=== PATIENT | male | born 1950 | race Caucasian/White ===

== ENCOUNTER 2016-05-06 10:43 | Inpatient (IN) | payer OTHER, MEDICARE ==
[2016-04-14 10:37] VITALS: BMI 24.0
--- NOTE | 2016-04-14 11:13 | PAT Medication Instructions ---
Service Date Apr 14, 2016. Current Home Medication List B-Complex W/ Folic Acid (Super B Complex Maxi), 1 TAB PO QAM Diazepam (Valium), 10 MG PO HS PRN for Pain Esomeprazole Magnesium (Nexium), 40 MG PO EVERY THREE DAYS Fish Oil ([place]-3), 1,000 MG PO QAM Garlic (Garlic), 1 CAP PO BID Magnesium Oxide (Magnesium), 100 MG PO QPM Misc Natural Products (Saw [place]), 320 MG PO QPM Multiple Vitamin (Multi Vitamin), 1 TAB PO QAM Simvastatin (Zocor), 40 MG PO QAM Medication Instructions For Your Scheduled Surgery - Hold the following medications 2 weeks prior to surgery: Misc Natural Products (Saw [place]), 320 MG PO QPM Fish Oil ([place]-3), 1,000 MG PO QAM Garlic (Garlic), 1 CAP PO BID - Hold the following medications the morning of surgery: B-Complex W/ Folic Acid (Super B Complex Maxi), 1 TAB PO QAM Multiple Vitamin (Multi Vitamin), 1 TAB PO QAM - Take the following medications the morning of surgery with a sip of water OTHERWISE NOTHING TO EAT OR DRINK AFTER MIDNIGHT: Esomeprazole Magnesium (Nexium), 40 MG PO EVERY THREE DAYS Simvastatin (Zocor), 40 MG PO QAM - Take the following medications as scheduled the night before surgery: Magnesium Oxide (Magnesium), 100 MG PO QPM Diazepam (Valium), 10 MG PO HS PRN for Pain If you have any questions please call us at [phone] (Karen Mendoza PA-C ) or [phone] or [phone]
--- NOTE | 2016-04-14 11:40 | DIAGNOSTIC IMAGING REPORT ---
CHEST PREADMISSION(PA/LAT) CLINICAL HISTORY: Preoperative chest COMPARISON STUDY: No previous studies for comparison. FINDINGS: The heart is at the upper limits of normal in size. There is no failure. There is no focal pulmonary consolidation. There are no pleural effusions.[ IMPRESSION: No active disease in the chest. Electronically signed by: Abdullahi Chahal M.D. 04/14/2016 11:38 AM Dictated Date/Time: 04/14/2016 11:37 AM
[2016-04-14 11:58] LABS: BASO % 0.8 %; BASO ABS # 0.06 K/uL (0-0.2); COMPLETE YES; EOS % 6.2 %; HEMATOCRIT 42.7 % (42-52); IG% 0.5 %; LYMPH % 23.1 %; LYMPH ABS # 1.76 K/uL (1.2-3.4); MEAN CELL VOLUME 85.9 fL (80-100); MEAN CORPUSCULAR HEMOGLOBIN 29.6 pg (25-34); MEAN CORPUSCULAR HGB CONC 34.4 g/dl (32-36); MEAN PLATELET VOLUME 10.1 fL (7.4-10.4); MONO % 9.8 %; NEUT % 59.6 %; PLATELET COUNT 219 K/uL (130-400); RED BLOOD COUNT 4.97 M/uL (4.7-6.1); WHITE BLOOD COUNT 7.63 K/uL (4.8-10.8)
[2016-04-14 12:10] LABS: PARTIAL THROMBOPLASTIN RATIO 1.2; PROTHROMBIN TIME (PATIENT) 10.9 SECONDS (9.0-12.0)
[2016-04-14 12:27] LABS: BUN/CREATININE RATIO 16.2 (10-20); CALCIUM 8.7 mg/dl (8.5-10.1); CREATININE 0.8 mg/dl (0.60-1.40); POTASSIUM 4.4 mmol/L (3.5-5.1)
[2016-04-14 12:40] LABS: URINE APPEARANCE CLEAR (CLEAR); URINE BILIRUBIN NEG (NEG); URINE COLOR DK YELLOW; URINE NITRITE NEG (NEG); URINE SPECIFIC GRAVITY 1.012 (1.000-1.030); UROBILINOGEN NEG (NEG); ZZUR CULT IF INDIC CLEAN CATCH NO
[2016-04-14 12:53] LABS: MANUAL MICROSCOPIC REQUIRED? NO; REVIEW REQ? NO
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
[2016-05-06] VITALS (7 sets, daily range): BP systolic 111–157; BP diastolic 70–83; PULSE 65–94; TEMP 36.4–36.6; O2SAT 91–96; Ht 175.3 cm; Wt 71.7 kg
[~2016-05-06] VITALS: Ht 175.3 cm; Wt 71.7 kg
[2016-05-06] MEDS: TRANEXAMIC ACID INJ 1,000 MG in SODIUM CHLORIDE 0.9% 100ML 100 ML IV SCH ×2 (06:30→13:44)
[~2016-05-06 10:43] MED LIST: ACETAMINOPHEN 500 MG TAB PO SCH; ADVAIR INH; B-CO-25 PO; BUPIVACAINE 0.5 % 5 MG/1 ML PF 10ML VIAL ONE; BUPIVACAINE/EPINEPHRINE 0.25% 1:200,000 30 ML VIAL ONE; CEFAZOLIN 2000 MG/60 ML D5W 60 ML IV SCH; CeleBREX 200 MG CAP PO SCH; DEXAMETHASONE 4 MG TAB PO SCH; DIAZ10TA PO; FAMOTIDINE 20 MG TAB PO SCH; GABAPENTIN 300 MG CAP PO SCH; GARL10007 PO; LACTATED RINGER'S 1000ML 1,000 ML IV SCH; LACTATED RINGER'S 1000ML 500 ML IV ONE; LACTATED RINGER'S 1000ML IV SCH; LIDOCAINE HCL 2% 2 ML VIAL (20MG/ML) ONE; MAGN1TAB41 PO; METOCLOPRAMIDE HCL 10 MG TAB PO SCH; MISC1CAP60 PO; MULT-1027 PO; NXM/40 PO; OMEG10007 PO; OXYCODONE HCL 10 MG TABCR (OXYCONTIN) PO SCH; POLYMYXIN B SULFATE 100,000 UNITS in NSS 100ML IR SCH; ROPIVACAINE 5MG/ML 30 ML 150 MG, BUPIVACAINE/EPINEPHR 0.5% MPF 30 ML, KETOROLAC TROMETH... INFIL SCH; SIMV40TA2 PO; VANCOMYCIN INJ 400 MG in NSS 100ML IR SCH
[2016-05-06] MEDS ORDERED: NALOXONE HCL 0.4 MG/1 ML VIAL/CARP IV PRN (12:30)
[2016-05-06] MEDS ORDERED: LABETALOL HCL IV 5 MG/ML 20ML IV PRN (12:30)
[2016-05-06] MEDS ORDERED: HYDROmorphone INJ 2 MG/ML SYR/VIAL IV PRN (12:30)
[2016-05-06] MEDS ORDERED: PHENYLEPHRINE 100MCG/ML 5ML SYR IV PRN (12:30)
[2016-05-06] MEDS ORDERED: FENTANYL CITRATE INJ 50 MCG/1 ML 2 ML VIAL IV PRN (12:30)
[2016-05-06] MEDS ORDERED: FLUMAZENIL 0.1 MG/1 ML 10 ML VIAL IV PRN (12:30)
[2016-05-06] MEDS ORDERED: ONDANSETRON INJ 2 MG/ML 2 ML VIAL IV PRN ×2 (12:30→16:45)
[2016-05-06] MEDS ORDERED: EpHEDrine SULFATE INJ 50 MG/ML AMP IV PRN (12:30)
[2016-05-06] MEDS ORDERED: ATROPINE SULFATE 0.1 MG/ML 5ML SYR IV PRN (12:30)
[2016-05-06] MEDS ORDERED: MEPERIDINE HCL 25 MG/ML CARP IV PRN (12:30)
[2016-05-06] MEDS ORDERED: MIDAZOLAM HCL 1 MG/ML 2ML VIAL ONE ×2 (13:12→14:30)
[2016-05-06] MEDS ORDERED: PROPOFOL IV EMULSION 10 MG/ML 20 ML VIAL IV ONE ×3 (13:12→15:18)
--- NOTE | 2016-05-06 13:47 | History & Physical Bridge Note ---
H&P Re-Evaluation Bridge Note: I have examined the patient, reviewed the History & Physical and in the interval since the performance of the History & Physical I have noted the following changes of clinical significance: No changes noted
[2016-05-06] MEDS ORDERED: ORTHO JOINT ANESTHETIC ONE (14:04)
[2016-05-06] MEDS ORDERED: BUPIVACAINE/EPINEPHRINE 0.25% 1:200,000 30 ML VIAL ONE (14:04)
[2016-05-06] MEDS ORDERED: POVIDONE-IODINE OP SOLN 30 ML BTL ONE (14:04)
[2016-05-06] MEDS ORDERED: BACITRACIN 50000 UNIT VIAL ONE (14:04)
[2016-05-06] MEDS ORDERED: FENTANYL CITRATE INJ 50 MCG/1 ML 2 ML VIAL ONE (14:26)
[2016-05-06] MEDS ORDERED: ONDANSETRON INJ 2 MG/ML 2 ML VIAL ONE (14:46)
[2016-05-06] MEDS ORDERED: LIDOCAINE HCL 2% 2 ML VIAL (20MG/ML) ONE (14:46)
[2016-05-06] MEDS ORDERED: EpHEDrine SULFATE 50MG/5ML SYR ONE (15:05)
--- NOTE | 2016-05-06 16:36 | [facility] Post Operative Brief Note ---
Immediate Operative Summary Operative Date May 06, 2016. Pre-Operative Diagnosis Degenerative joint disease, right knee Post-Operative Diagnosis Degenerative joint disease, right knee severe post traumatic arthritis Procedure(s) Performed Right Total Knee Arthoplasy Surgeon Dr. Fareed Loen [employer] Consultant Surgeon(s) Nicole Mackenzie PA-C Estimated Blood Loss 25 Findings severe scarring Specimens A: right knee bone and tissue Complication(s) None Disposition Recovery Room / PACU
[2016-05-06] MEDS ORDERED: ALUMINUM/MAGNESIUM/SIMETH (MAALOX MAX) 30 ML UDC PO PRN (16:45)
[2016-05-06] MEDS ORDERED: METOCLOPRAMIDE HCL INJ 5 MG/ML 2 ML VIAL IV PRN (16:45)
[2016-05-06] MEDS ORDERED: SOD PHOSPHATE/SOD BIPHOSPHATE ENEMA 132 ML BTL PR PRN (16:45)
[2016-05-06] MEDS ORDERED: BISACODYL 10 MG SUPP PR PRN (16:45)
[2016-05-06] MEDS ORDERED: OXYCODONE HCL IR 5 MG TAB (IMMEDIATE RELEASE) PO PRN (16:45)
[2016-05-06] MEDS ORDERED: MAGNESIUM HYDROXIDE SUSP 30 ML UDC PO PRN (16:45)
[2016-05-06] MEDS ORDERED: MoRPHine SULFATE 2 MG/ML CARP IV PRN (16:45)
[2016-05-06] MEDS ORDERED: TRAMADOL HCL 50 MG TAB PO PRN (16:45)
[2016-05-06] MEDS ORDERED: DiphenhydrAMINE HCL 50 MG/ML VIAL IV PRN (16:45)
[2016-05-06] MEDS ORDERED: KETOROLAC TROMETHAMINE 15 MG/ML VIAL IV. PRN (16:45)
--- NOTE | 2016-05-06 17:17 | Anesthesiology Progress Note ---
Anesthesia Post Op Note Date & Time May 06, 2016 at 17:17 Vital Signs Pain Intensity: 0 Vital Signs Past 12 Hours Date Time Temp Pulse Resp B/P Pulse Ox O2 Delivery O2 Flow Rate FiO2 05/06/16 16:56 36.1 90 18 122/69 99 Mask 10 05/06/16 11:10 36.6 65 18 132/81 96 Room Air Notes Mental Status: alert / awake / arousable, participated in evaluation Pt Amnestic to Procedure: Yes Nausea / Vomiting: adequately controlled Pain: adequately controlled Airway Patency, RR, SpO2: stable & adequate BP & HR: stable & adequate Hydration State: stable & adequate Neuraxial Anesthesia: was administered, sensory block is resolving Anesthetic Complications: no major complications apparent Pt doing well.
--- NOTE | 2016-05-06 17:33 | DIAGNOSTIC IMAGING REPORT ---
RIGHT KNEE 1 OR 2 VIEWS ROUTINE CLINICAL HISTORY: Postoperative evaluation of the right knee. COMPARISON: None FINDINGS: Alignment of the total right knee arthroplasty is anatomic. There is no fracture or unexpected radiopaque foreign body. Drains and skin noman are present. There is a healed fracture of the proximal shaft of the right fibula. Cortical irregularity of the medial distal right femur is chronic and likely posttraumatic. IMPRESSION: Expected findings following total right knee arthroplasty. Electronically signed by: Nikolay Jeffery M.D. 05/06/2016 5:32 PM Dictated Date/Time: 05/06/2016 5:31 PM
[2016-05-06] MEDS: D5W AND 1/2NSS + 20MEQ KCL 1,000 ML IV SCH (18:50)
[2016-05-06] MEDS: SENNA 8.6 MG TAB PO SCH (18:54)
[2016-05-06] MEDS ORDERED: ADVIN25050 PO (18:55)
[2016-05-06] MEDS: FLUTICASONE/SALMETEROL 250/50 (ADVAIR) 14 PUFF/1 INHALER INH SCH (20:08)
[2016-05-06] MEDS: ASPIRIN 81 MG ECTAB PO SCH (20:43)
[2016-05-06] MEDS: OXYCODONE HCL 10 MG TABCR (OXYCONTIN) PO SCH (20:44)
[2016-05-06] MEDS: CEFAZOLIN IV 2,000 MG in DEXTROSE 5% 50ML 50 ML IV SCH (22:10)
[2016-05-06] MEDS: ACETAMINOPHEN 500 MG TAB PO SCH (22:11)
[2016-05-06] MEDS ORDERED: TRANEXAMIC ACID INJ 1,000 MG in SODIUM CHLORIDE 0.9% 100ML 100 ML IV SCH (23:00)
[2016-05-06] MEDS: ZOLPIDEM TARTRATE 5 MG TAB PO PRN (23:37)
[2016-05-07] VITALS (8 sets, daily range): BP systolic 101–145; BP diastolic 58–79; PULSE 65–74; TEMP 36.4–36.8; O2SAT 92–98
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
[2016-05-07] MEDS: ZOLPIDEM TARTRATE 5 MG TAB PO PRN (01:31)
[2016-05-07] MEDS: D5W AND 1/2NSS + 20MEQ KCL 1,000 ML IV SCH ×2 (04:16→13:48)
[2016-05-07] MEDS: CEFAZOLIN IV 2,000 MG in DEXTROSE 5% 50ML 50 ML IV SCH (06:08)
[2016-05-07] MEDS: ACETAMINOPHEN 500 MG TAB PO SCH ×3 (06:08→20:50)
[2016-05-07 06:40] LABS: HEMATOCRIT 34.2 % (42-52); MEAN CELL VOLUME 86.1 fL (80-100); MEAN CORPUSCULAR HGB CONC 34.8 g/dl (32-36); MEAN PLATELET VOLUME 10.2 fL (7.4-10.4); PLATELET COUNT 207 K/uL (130-400); RED BLOOD COUNT 3.97 M/uL (4.7-6.1); WHITE BLOOD COUNT 18.32 K/uL (4.8-10.8)
[2016-05-07] MEDS: PANTOprazole SOD 40 MG TAB PO SCH (07:10)
[2016-05-07 07:17] LABS: BUN/CREATININE RATIO 18.9 (10-20); CALCIUM 7.9 mg/dl (8.5-10.1); CREATININE 0.88 mg/dl (0.60-1.40); POTASSIUM 4.3 mmol/L (3.5-5.1)
--- NOTE | 2016-05-07 07:27 | Orthopedic Progress Note ---
Orthopedic Progress Note Date of Service May 07, 2016. Subjective Post OP Day: 1 Reports: feeling well, pain controlled w PO medications, Denies: SOB, calf pain , chest pain, complaints, light headedness, nausea / vomiting Objective calves soft nontender, N/V intact, capillary refill less than 2 sec., dressing C /D/I, A&O x3, toes mobile Provena wound vac in tact. Date Time Temp Pulse Resp B/P Pulse Ox O2 Delivery O2 Flow Rate FiO2 05/07/16 07:02 36.5 70 18 111/63 93 Room Air 05/07/16 03:32 36.5 74 16 111/64 92 Room Air 05/06/16 23:30 Room Air 05/06/16 23:02 36.4 83 16 111/70 91 Room Air 05/06/16 20:40 36.4 87 18 138/81 94 Room Air 05/06/16 19:31 36.5 94 18 157/77 92 Room Air 05/06/16 18:40 36.4 94 18 121/81 93 Nasal Cannula 3.0 05/06/16 18:13 36.6 84 16 130/83 95 Nasal Cannula 2.0 05/06/16 17:40 96 Nasal Cannula 2.0 05/06/16 17:40 96 Nasal Cannula 2.0 05/06/16 17:40 36.4 88 16 136/78 96 Nasal Cannula 2.0 05/06/16 17:25 36.4 89 15 134/84 94 Nasal Cannula 2 05/06/16 16:56 36.1 90 18 122/69 99 Mask 10 05/06/16 11:10 36.6 65 18 132/81 96 Room Air Laboratory Results 24 Hours: Test 05/07/16 05:50 Hematocrit 34.2 % Hemoglobin 11.9 g/dL Assessment & Plan Assessment: POD #1, Rt TKA Plan: PT/ OT DVT proph- ASA D/C planning- Home w OPPT, likely Monday. Inhouse Planning Pain Management: Celebrex, Oxycontin, Hayden, Morphine, PO Tylenol, Oxy IR DVT Prophylaxis: TEDs, SCDs, ASA Discharge Planning Discharge Planning: home with oppt Pain Management: Celebrex, Oxycontin, PO Tylenol, Oxy IR DVT Prophylaxis: TEDs, ASA Therapy: Physical Therapy, Occupational Therapy
[2016-05-07] MEDS: OXYCODONE HCL 10 MG TABCR (OXYCONTIN) PO SCH ×2 (09:17→20:50)
[2016-05-07] MEDS: MULTIVITAMIN TAB PO SCH (09:17)
[2016-05-07] MEDS: FLUTICASONE/SALMETEROL 250/50 (ADVAIR) 14 PUFF/1 INHALER INH SCH ×2 (09:17→19:11)
[2016-05-07] MEDS: ASPIRIN 81 MG ECTAB PO SCH ×2 (09:18→20:50)
[2016-05-07] MEDS: SIMVASTATIN 40 MG TAB PO SCH (09:18)
[2016-05-07] MEDS: SENNA 8.6 MG TAB PO SCH (20:50)
[2016-05-08] MEDS: ACETAMINOPHEN 500 MG TAB PO SCH (07:05)
--- NOTE | 2016-05-08 07:13 | Orthopedic Progress Note ---
Orthopedic Progress Note Date of Service May 08, 2016. Subjective Post OP Day: 2 Reports: feeling well, pain controlled w PO medications, Denies: SOB, calf pain , chest pain, complaints, light headedness, nausea / vomiting Objective calves soft nontender, N/V intact, capillary refill less than 2 sec., dressing C /D/I, A&O x3, toes mobile Provena in tact. Date Time Temp Pulse Resp B/P Pulse Ox O2 Delivery O2 Flow Rate FiO2 05/07/16 23:15 Room Air 05/07/16 22:40 36.8 65 16 112/67 96 Room Air 05/07/16 15:45 Room Air 05/07/16 12:05 36.5 74 16 145/79 94 Room Air 05/07/16 10:15 70 96 05/07/16 09:15 98 Room Air 05/07/16 08:06 36.4 72 16 120/76 97 Room Air 05/07/16 08:00 Room Air Assessment & Plan Assessment: POD #2, Rt TKA Plan: PT/ OT DVT proph- ASA D/C planning- Home w OPPT, today. Inhouse Planning Pain Management: Celebrex, Oxycontin, Scobey, Morphine, PO Tylenol, Oxy IR DVT Prophylaxis: TEDs, SCDs, ASA Discharge Planning Discharge Planning: home with oppt Pain Management: Celebrex, Oxycontin, PO Tylenol, Oxy IR DVT Prophylaxis: TEDs, ASA Therapy: Physical Therapy, Occupational Therapy
[2016-05-08] MEDS ORDERED: RXC5 PO (07:16)
[2016-05-08] MEDS ORDERED: CLB200 PO (07:16)
[2016-05-08] MEDS ORDERED: ACET-1138 PO (07:16)
[2016-05-08] MEDS ORDERED: OXYSR10 PO (07:16)
[2016-05-08] MEDS ORDERED: ASPEC81 PO (07:16)
[2016-05-08] MEDS ORDERED: ONDA8TAB6 PO (07:16)
--- NOTE | 2016-05-08 07:18 | Discharge Instructions ---
Discharge Instructions Admission Reason for Admission: Right Knee Degenerative Arthritis Discharge Discharge Diagnosis / Problem: Right TKA Discharge Goals Goal(s): Improve function Activity Recommendations Activity Limitations: as noted below . Instructions / Follow-Up Instructions / Follow-Up ACTIVITY RECOMMENDATIONS: SELF CARE INSTRUCTIONS AFTER TOTAL KNEE REPLACEMENT A. You may need to continue a physical therapy program after discharge from the hospital. There are several options available to you. Your doctor will assist you in selecting the best one for you. 1. An out-patient facility 2 to 3 times a week for therapy or home therapy. 2. Continue working on all exercises taught to you in the hospital. Your goals should be to increase bending of your knee to 90 degrees and beyond and to fully straighten your knee. B. You may progress at your own pace from walking with a walker or crutches to a cane; then to no assistive devices. C. Make walking a part of your daily routine. Be up as much as comfortable with rest periods throughout the day. Rest with leg elevation is very important. Use the ice wrap frequently for the first 3-4 weeks. D. There are no restrictions on activities. You may ride in a car, shop, participate in casing worker and all social activities. E. Wear the long elastic stockings (JASEN hose) 20 hours a day for 2 weeks after surgery. They can be removed several times a day for laundering and for a bath. F. You may shower, no tub baths until cleared by your doctor. SPECIAL CARE INSTRUCTIONS: VERY IMPORTANT TO READ AND REVIEW A. There are a few signs you need to watch for after you are home. Call [facility] if you notice any of the followin. Increased severe knee pain. Some pain is expected especially when you exercise. 2. Increased swelling in your leg or knee; pain or swelling of the calf muscle in either lower leg. 3. Any fluid drainage from the incision. 4. Shortness of breath or chest pain. B. Please call [facility] at if you have any concerns or questions about your operation or recovery. The doctor or his nurse will return your call promptly. C. You must take antibiotics before dental work, bladder, bowel or other surgery. Your doctor will provide you with a permanent care to carry describing this precaution. IMPORTANT: * REMEMBER TO TAKE ASPIRIN, 81 MG, TWICE DAILY FOR 4 WEEKS UNLESS OTHERWISE DIRECTED. THIS IS YOUR BLOOD THINNER. * HIGH RISK PATIENTS MAY BE PRESCRIBED A STRONGER BLOOD THINNER. THIS WILL BE PROVIDED AT DISCHARGE. * CALL IF INCREASED PAIN, REDNESS, DRAINAGE OR FEVER GREATER THAT 101. * WEAR JASEN HOSE 20 HOURS PER DAY FOR 2 WEEKS. * YOU MAY HAVE A LARGE BAND-AID LIKE DRESSING (SILVERON). THIS WILL REMAIN ON YOUR INCISION FOR 7 DAYS, THEN CAN BE REMOVED. IF INCISION IS LEAKING THROUGH DRESSING, CALL THE OFFICE . FOLLOW UP VISIT: If appointment is not already scheduled: Please call [facility] to make a follow-up appointment for 2 weeks after your surgery at . YOU HAVE A SUPERFICIAL WOUND VAC, REMOVE AND DISCARD ALL PARTS 1 WEEK POST OP, THEN REPLACE WITH DAILY DRESSINGS UNTIL FOLLOW UP IN OFFICE. Current Hospital Diet Patient's current hospital diet: Low Lactose Diet Discharge Diet Recommended Diet: Regular Diet Procedures Procedures Performed: Right Total Knee Arthoplasy Pending Studies Studies pending at discharge: no Medical Emergencies . Who to Call and When: Medical Emergencies: If at any time you feel your situation is an emergency, please call [phone] immediately. . Non-Emergent Contact Non-Emergency issues call your: Primary Care Provider . "Provider Documentation" section prepared by Spenser Garcia. VTE Core Measure Inpt VTE Proph given/why not?: Other Anticoagulation (ASA), T.E.D. Stockings, SCD's
[2016-05-08] MEDS: PANTOprazole SOD 40 MG TAB PO SCH (07:48)
[2016-05-08 07:49] VITALS: BP 118/71; PULSE 61; TEMP 36.6; O2SAT 94
[2016-05-08] MEDS: FLUTICASONE/SALMETEROL 250/50 (ADVAIR) 14 PUFF/1 INHALER INH SCH (08:33)
[2016-05-08] MEDS: OXYCODONE HCL 10 MG TABCR (OXYCONTIN) PO SCH (08:33)
[2016-05-08] MEDS: ASPIRIN 81 MG ECTAB PO SCH (08:33)
[2016-05-08] MEDS: MULTIVITAMIN TAB PO SCH (08:33)
[2016-05-08] MEDS: SIMVASTATIN 40 MG TAB PO SCH (08:33)
[2016-05-08 08:41] VITALS: BP 118/71; PULSE 61; TEMP 36.6; O2SAT 94
[2016-05-08] MEDS ORDERED: CeleBREX 200 MG CAP PO SCH (21:00)
== END 2016-05-08 11:03 | disposition home or self-care (01) | DRG 470 ==
LOC: ENRESERVDT → ENRESERVTM → C.ACU 10:43 → C.3E 10:51
PROVIDERS: ADMIT Orthopaedic Surgery; ATTEND Orthopaedic Surgery
PROC: 0SRC0J9 Replacement of Right Knee Joint with Synthetic Substitute, Cemented, Open Approach (ICD-10-PCS; principal; 2016-05-06 13:00)
DX: M17.31 Unilateral post-traumatic osteoarthritis, right knee (principal); J45.909 Unspecified asthma, uncomplicated; K21.9 Gastro-esophageal reflux disease without esophagitis; Z87.891 Personal history of nicotine dependence; Z98.1 Arthrodesis status; Z98.890 Other specified postprocedural states; Z79.899 Other long term (current) drug therapy

== ENCOUNTER 2024-05-06 07:59 | Inpatient (IN) ==
--- NOTE | 2024-03-29 16:05 | PAT Medication Instructions ---
Medication Instructions Date of Service March 29, 2024 Home Medications budesonide-formoterol HFA 160 mcg-4.5 mcg/actuation aerosol inhaler 1 inh inhalation BID furosemide 40 mg tablet 40 mg PO QAM garlic 1,000 mg capsule 1,000 mg PO QAM omega 2-ezu-cbc-fish oil 1,200 mg (144 mg-216 mg) capsule (Fish Oil) 1 cap PO BID omeprazole 40 mg capsule,delayed release 40 mg PO Q2D simvastatin 40 mg tablet 40 mg PO HS spironolactone 25 mg tablet 25 mg PO QAM Continue as directed omeprazole 40 mg capsule,delayed release 40 mg PO Q2D STOP taking 2 weeks before surgery (or as soon as possible if surgery is within 2 weeks) garlic 1,000 mg capsule 1,000 mg PO QAM omega 6-bxv-alc-fish oil 1,200 mg (144 mg-216 mg) capsule (Fish Oil) 1 cap PO BID DO NOT take the morning of surgery furosemide 40 mg tablet 40 mg PO QAM spironolactone 25 mg tablet 25 mg PO QAM Take morning of surgery With a small sip of water, OTHERWISE NOTHING TO EAT OR DRINK AFTER MIDNIGHT: budesonide-formoterol HFA 160 mcg-4.5 mcg/actuation aerosol inhaler 1 inh inhalation BID Take evening before surgery budesonide-formoterol HFA 160 mcg-4.5 mcg/actuation aerosol inhaler 1 inh inhalation BID simvastatin 40 mg tablet 40 mg PO HS Other Notes If you have any questions please call us at [phone] or [phone] or [phone] or [phone]
--- NOTE | 2024-04-09 09:05 | Anesthesiology Consultation ---
Date of Service April 09, 2024 Assessment & Plan (1) Encounter for pre-operative examination: - Infectious disease screening: Per assessment on 04/09/24- No known recent infectious disease contacts or current infectious disease symptoms. - [facility]ascular visit (03/13/24): "follow up in [facility].. Doing extremely well on diflunisal/spironolactone/empagliflozin, atorvastatin.. NYHA I, euvolemic, NAC stage 1.. Last echo August 2023.. 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 He will continue on his GDMT with Aldactone 25 mg daily and Jardiance 10 mg daily.. 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 Ceballos.. We will see him back in 1 year, or earlier if he has any progressive cardiac symptoms.. we will try to see if you can qualify for Tafamidis again.. Will discontinue Diflunisal in that case" > Clarified current medications with patient 04/09/24- Tafamidis was approved so he is no longer taking Diflunisal (further medication adjustments made as well and updated in medication list). - Patient acceptable risk for surgery pending surgeon-ordered PCP (Dr. Hernandez/Alexander, appt 04/12) and cardiology (Dr. Ceballos, writing letter vs preop appt TBD) preop evaluations. Chart Review Chart Review: Patient seen in Pre Admission Testing Teaching & Discussion Pre-Anesthesia Teaching/Discussion Notes: Instructed NPO after midnight before surgery,except medications with 15 cc of water. Medication instructions provided according to the PAT guidelines. History Surgery Operation Date: 05/06/24 10:05 Proposed Procedures p L3-S1 Decompression and Fusion, Spinal Cord Monitoring - Placido Momin, Height/Weight Height: 5 ft 9 in Weight: 75.7 kg Allergies Allergy/AdvReac Type Severity Reaction Status Date / Time No Known Allergies Allergy Unknown Verified 03/28/24 12:13 lactose AdvReac Severe Severe Verified 04/01/24 12:26 gas/abnormal pain Medications Home Medications Medication Instructions Recorded Confirmed Last Taken budesonide-formoterol HFA 160 1 inh inhalation BID 03/28/24 03/28/24 Unknown mcg-4.5 mcg/actuation aerosol inhaler furosemide 40 mg tablet 40 mg PO QAM 03/28/24 03/28/24 Unknown garlic 1,000 mg capsule 1,000 mg PO QAM 03/28/24 03/28/24 Unknown omega 1-ion-vfz-fish oil 1,200 mg 1 cap PO BID 03/28/24 03/28/24 Unknown (144 mg-216 mg) capsule (Fish Oil) omeprazole 40 mg capsule,delayed 40 mg PO Q2D 03/28/24 03/28/24 Unknown release simvastatin 40 mg tablet 40 mg PO HS 03/28/24 03/28/24 Unknown spironolactone 25 mg tablet 25 mg PO QAM 03/28/24 03/28/24 Unknown tafamidis 80 mg PO DAILY 04/09/24 04/09/24 Unknown Past Medical History Medical History Asthma Patient reports chronic cough/following with pulmonary. Denies asthma/COPD dx Hx asthma listed per cardio records, Follows with Dr. 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 Ceballos/Alexander cardio Exercise / Class Metabolic Activity II 4-5 Yardwork/Stairs/Walk up hill (one FS: No CP, no SOB) Past Surgical History Surgical History History of open reduction and internal fixation (ORIF) procedure 1970- Right ankle and elbow (screw remains), left upper arm (no hardware used) > hardware removed ankle 2006- right upper leg w/patella and left ankle History of surgery Pericardiocentesis r/t pericardial effusion (2021) History of total right knee replacement Right TKA (05/06/16): SAB at L3/4 (1 attempt) + regional at [facility] Hx of ankle fusion 2008, left ankle (+ hardware intact) Hx of colonoscopy Hx of nasal septoplasty 2010, w/ turbinate reduction 12/2018 Hx of repair of left rotator cuff 2003, w/lt carpal tunnel release 2005, revision of rotator cuff Hx of repair of right rotator cuff 1982, w/rt carpal tunnel release 02/2011, revision rotator cuff S/P hardware removal right ankle Past Anesthesia History No Hx of Anesthesia Complications and No Family Hx of Anesthesia Complications History of PONV No Hx of PONV and No Hx of Motion Sickness Social History Smoking Status: Former smoker Do You Dip or Chew Tobacco: No Smoking End Date: 1973 Hx Alcohol Use: No Hx Substance Use: No substance use type: does not use Review of Systems Patient denies chest pain, shortness of breath, dyspnea on exertion, fever, chills, cough, wheezing. Physical Exam Vital Signs BP 151/77 P 64 TEMP 97.7 SP02 95%RA RESP 16 Physical Full cervical extension range of motion. Full TMJ range of motion. TMD 3 finger breaths Mallampati Score II Dentition: upper left side missing, + crowns Lungs: clear throughout to auscultation Cardiac: regular rate and rhythm, no murmurs noted Spine: normal Carotid arteries: negative bruit Extremities: no LE edema Lab Results Anesthesia Preop Results Results Anesthesia Widget: WBC 7.25 K/ul (4.8-10.8) 04/09/24 Hgb 15.7 g/dl (14.0-18.0) 04/09/24 Hct 45.9 % (42.0-52.0) 04/09/24 Plt 242 K/uL (130-400) 04/09/24 Na 138 mmol/L (136-145) 04/09/24 K 4.0 mmol/L (3.5-5.1) 04/09/24 Cl 107 mmol/L (98-107) 04/09/24 CO2 25 mmol/L (21-32) 04/09/24 BUN 20 mg/dl (6-23) 04/09/24 Creat 0.96 mg/dl (0.6-1.4) 04/09/24 Glucose Level 90 mg/dl (70-99(Fasting)) 04/09/24 PT 11.0 Seconds (9.0-12.0) 04/09/24 PTT 29 Seconds (21-31) 04/09/24 INR 1.0 (0.9-1.1) 04/09/24 Urine Color Yellow 04/09/24 Urine Appearance Clear (Clear) 04/09/24 Urine pH 6.0 (4.5-7.5) 04/09/24 Urine Specific [place] 1.025 (1.000-1.030) 04/09/24 Urine Protein Negative (Negative) 04/09/24 Urine Glucose (UA) Negative (Negative) 04/09/24 Urine Ketones Negative (Negative) 04/09/24 Urine Blood Negative (Negative) 04/09/24 Urine Nitrite Negative (Negative) 04/09/24 Urine Bilirubin Negative (Negative) 04/09/24 Urine Urobilinogen Negative (Negative) 04/09/24 Urine Leukocyte Esterase Negative (Negative) 04/09/24 Blood Type O Positive 04/09/24 Antibody Screen NEGATIVE 04/09/24 Testing Electrocardiogram Date: 04/09/24 SR with first degree AVB with PACs at 64bpm. LAD. Septal infarct, age undetermined. NS TWA. Per comparison EKG from 03/13/24 in system, Septal infarct dating back to 06/10/2020. Chest X-Ray Date: 04/09/24 FINDINGS: No lines and tubes are seen. Cardiomegaly is noted. The lungs are clear. No evidence of pleural effusion or pneumothorax. IMPRESSION: No acute chest disease. Cardiomegaly is noted. Echocardiogram Date: 09/12/23 LVEF 55-60%. Wall thickness is increased with LVH/RVH. Mild MR/TR. Mild LAE. Grade 1 diastolic dysfunction. Trivial pericardial effusion. "As compared to 09/08/22: There is no significant change. Known TTR cardiac amyloidosis." per report. Stress Test Date: 03/01/23 Type: nuclear No significant EKG abnormalities during regadenoson infusion. The PET perfusion images are normal. LVEF 46% at rest and augments to 51% with stress. There was normal segment wall motion. Findings indicate a low probability of obstructive epicardial disease or microvascular disease and probably reflect the clinical state of bradycardia and use of beta-blockade.
[2024-05-06] MEDS ORDERED: ROCURONIUM BROMIDE 10 MG/ML 5 ML VIAL IV ONE ×2 (08:28→11:10)
[2024-05-06] MEDS ORDERED: PROPOFOL IV EMULSION 10 MG/ML 20 ML VIAL IV ONE (08:28)
[2024-05-06] MEDS ORDERED: MIDAZOLAM HCL 1 MG/ML 2ML VIAL ONE (08:28)
[2024-05-06] MEDS ORDERED: GLYCOPYRROLATE 0.2 MG/ML VIAL ONE (08:28)
[2024-05-06] MEDS ORDERED: HYDROmorphone INJ 2 MG/ML SYR/VIAL ONE (08:28)
[2024-05-06] MEDS ORDERED: LIDOCAINE 2% 2 ML VIAL/AMP(20MG/ML) INFIL ONE (08:28)
[2024-05-06] MEDS ORDERED: ONDANSETRON INJ 2 MG/ML 2 ML VIAL ONE (08:28)
[2024-05-06] MEDS ORDERED: KETAMINE HCL 10MG/ML SYR ONE (08:28)
[2024-05-06] MEDS ORDERED: DEXAMETHASONE SOD INJ 4 MG/ML VIAL ONE (08:28)
[2024-05-06] MEDS ORDERED: SUGAMMADEX SODIUM 200 MG/2 ML VIAL IV ONE (08:35)
[2024-05-06] MEDS: ACETAMINOPHEN 500 MG TAB PO SCH (08:48)
[2024-05-06] MEDS: GABAPENTIN 300 MG CAP PO SCH (08:48)
[2024-05-06] MEDS: CeleBREX 200 MG CAP PO SCH (08:49)
[2024-05-06] MEDS: LR 60ML/HR IV SCH (08:49)
[2024-05-06] MEDS: VANCOMYCIN HCL 1,250 MG in SODIUM CHLORIDE 0.9% 250 ML IV SCH (08:50)
[2024-05-06] MEDS: LR 15ML/HR IV SCH (08:50)
--- NOTE | 2024-05-06 10:01 | History & Physical Bridge Note ---
Date of Service May 06, 2024 History & Physical Bridge Note I have examined the patient, reviewed the History & Physical and in the interval since the performance of the History & Physical I have noted the following changes of clinical significance: no changes noted
--- NOTE | 2024-05-06 10:02 | History & Physical Report ---
Date of Service May 06, 2024 Assessment & Plan (1) Multilevel lumbosacral spondylosis with radiculopathy: Plan: L3-S1 decompression and fusion History of Present Illness Chief Complaint: Back and bilateral leg pain Primary Care Provider: Lew Hernandez This is a 73-year-old male who presents for chronic persistent back and leg pain after failing course of nonoperative care is here for surgical intervention. Allergies Allergy/AdvReac Type Severity Reaction Status Date / Time No Known Allergies Allergy Unknown Verified 05/06/24 08:43 lactose AdvReac Severe Severe Verified 05/06/24 08:43 gas/abnormal pain Home Medications Medication Instructions Recorded Confirmed Type budesonide-formoterol HFA 160 1 inh inhalation BID 03/28/24 05/06/24 History mcg-4.5 mcg/actuation aerosol inhaler furosemide 40 mg tablet 40 mg PO QAM 03/28/24 05/06/24 History garlic 1,000 mg capsule 1,000 mg PO QAM 03/28/24 05/06/24 History omega 0-kke-ctf-fish oil 1,200 mg 1 cap PO BID 03/28/24 05/06/24 History (144 mg-216 mg) capsule (Fish Oil) omeprazole 40 mg capsule,delayed 40 mg PO Q2D 03/28/24 05/06/24 History release simvastatin 40 mg tablet 40 mg PO HS 03/28/24 05/06/24 History spironolactone 25 mg tablet 25 mg PO QAM 03/28/24 05/06/24 History tafamidis 80 mg PO DAILY 04/09/24 05/06/24 History Past Med/Surg History Problem List (Updated 05/06/24 @ 10:02 by Placido Momin DO) Multilevel lumbosacral spondylosis with radiculopathy Encounter for pre-operative examination Medical History Asthma Patient reports chronic cough/following with pulmonary. Denies asthma/COPD dx Hx asthma listed per cardio records, Follows with Dr. 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 Ceballos/Alexander cardio Surgical History History of open reduction and internal fixation (ORIF) procedure 1970- Right ankle and elbow (screw remains), left upper arm (no hardware used) > hardware removed ankle 2006- right upper leg w/patella and left ankle History of surgery Pericardiocentesis r/t pericardial effusion (2021) History of total right knee replacement Right TKA (05/06/16): SAB at L3/4 (1 attempt) + regional at [facility] Hx of ankle fusion 2008, left ankle (+ hardware intact) Hx of colonoscopy Hx of nasal septoplasty 2010, w/ turbinate reduction 12/2018 Hx of repair of left rotator cuff 2003, w/lt carpal tunnel release 2005, revision of rotator cuff Hx of repair of right rotator cuff 1982, w/rt carpal tunnel release 02/2011, revision rotator cuff S/P hardware removal right ankle Social History Smoking Status: Former smoker Tobacco Type: Cigarettes Smoking End Date: Quit 1973; Second Hand Exposure: Yes (hx); Do You Dip or Chew Tobacco: No; Tobacco Cessation Education Requested by Patient: No Hx Alcohol Use: No Hx Substance Use: No Preferred Language: Armenian Communication Ability: Effective Communication Engineer Required: No Beliefs That Will Affect Care: None Current Living Situation: Spouse Other Information That Helps Us Care for You: No Feels Safe at Home: Yes Safety Concerns: Feels Safe At This Time Assistive Devices: Glasses and Hearing Aid - Bilateral Physical Exam Physical Exam: Patient is alert and oriented Heart regular rhythm Lungs clear Results & Data Results & Data Vital Signs (Past 12 Hours) Vital Signs Temp Pulse Resp BP Pulse Ox O2 Del Method 05/06/24 08:40 36.8 C 66 20 139/86 97 Room Air
[2024-05-06] MEDS ORDERED: ATROPINE SULFATE 0.1 MG/ML 10ML SYR IV PRN (10:13)
[2024-05-06] MEDS ORDERED: ePHEDrine sulfate 50 MG/ML AMP IV PRN (10:13)
[2024-05-06] MEDS ORDERED: ePHEDrine sulfate 50 MG/5 ML SYR ONE (11:35)
[2024-05-06] MEDS: BUPIVACAINE/EPINEPHRINE 0.25% 1:200,000 30 ML VIAL ONE (12:07)
[2024-05-06] MEDS: ceFAZolin 330 MG/ML 1 GM VIAL ONE (12:08)
[2024-05-06] MEDS ORDERED: ALBUMIN HUMAN 5% 12.5 GM/250 ML VIAL IV ONE (13:02)
[2024-05-06] MEDS: FLOSEAL HEMOSTATIC MATRIX 10ML TOP ONE (13:30)
--- NOTE | 2024-05-06 13:51 | Operative Report ---
Post Operative Report Pre & Post Diagnosis Operation Date: 05/06/24 10:05 Pre-Op Diagnosis: #1 multilevel Lumbosacral Spondylosis with Radiculopathy #2 L4-L5 L5-S1. Lumbar spondylolisthesis Post-Op Diagnosis: Same with iatrogenic spondylolisthesis L3-L4. I identified the patient and participated in the time-out.: Yes Procedure Operation Date: 05/06/24 10:05 Actual Procedures #1 lumbar decompression with bilateral medial facetectomies and foraminotomies L2-L3, L3-L4 L4-5 and L5-S1. #2 posterior spinal fusion L3-S1. #3 placement posterior segmental instrumentation L3-S1 using Esquivel screws. #4 interbody fusion L3-L4, L4-5 L5-S1. #5 placement of Spira 13 x 26 mm x 2 at L3-4, 15 x 26 mm x 2 at L4-5 and 14 x 26 mm x 2 at L5-S1. #6 placement locally harvested morselized autograft posterior gutters. #7 placement of infuse collagen sponge, with Koros in the posterior lateral gutters and os design interbody space. #8 application of versa wrap of the exposed dura. Surgeon Placido Momin, DO [employer] Worker Monalisa Pederson Estimated Blood Loss 1,050 Findings Consistent with Post-Op Diagnosis Specimens None Indications This is a 74-year-old male presents publish diagnosis after failing course of nonoperative care he is here for surgical invention. Description of Procedure Patient was met with identified informed consent obtained. Patient was then taken to the operative suite underwent intubation placed in a prone position the Wesly table top Eddie frame. All bony prominences well-padded eyes inspected to ensure no external pressure placed upon them. This point the lumbar spine was prepped and draped in a sterile fashion. Sharp dissection with the assistance of Bovie cautery was performed down to and exposing the lamina and transverse processes of L3 L4-5 and the sacral ala bilaterally. From caudal to cephalad fashion complete laminectomy of L5 was performed including bilateral medial facetectomies and foraminotomies addressing severe spinal stenosis. This is followed by complete laminectomy of L4 again requiring medial facetectomies and foraminotomies to address severe spinal stenosis. Then performed a laminectomy of L3. Had to perform aggressive facetectomies and foraminotomies to adequately decompress the nerves creating iatrogenic instability this level. I then performed partial laminectomy L2 with bilateral medial facetectomies to address all subarticular stenosis. Pedicle screws were then placed in L3 L4-5 and S1 levels bilaterally with assistance of fluoroscopy and the purposes ramone contoured and placed. By way of transforaminal approach on the right discectomy of L5-S1 was performed endplates guarded to subcortical bleeding bone and a 14 x 26 mm Spira cage filled with os design bone graft apposition. Then proceeded to the left transforaminal region at L5-S1. Again discectomy performed. Endplates guided to subcortical the bone and a second 14 x 26 mm spiral cage filled with os designed tapped in position. Then proceeded L4-[address] of transfer approach on the left discectomy performed. Endplates guided to subcortical mean bone and a 15 x 26 mm Spira cage filled with os designed tapped in position. Then proceeded to the right transforaminal region at L4-L5. Again discectomy performed. Endplates guided to subcortical and bone and a second 15 x 26 mm Spira cage filled with os design tapped in position. Lastly approached L3-L4 by way of transfer approach and right discectomy performed endplates guided to subcortical main bone and a 13 x 26 mm Spira cage filled with os designed tapped in position. Then proceeded to the left transforaminal region at L3-L4. Discectomy performed. Endplates guided to subcortical big bone and a second 13 x 26 mm Spira cage filled with Oxyzyme tapped in position. The rods were then compressed locked into final position bilaterally. The transverse processes of L3 L4-5 and the sacral ala burred to subcortical bleeding bone. Infuse collagen sponge, with Koros and local autograft placed in the posterior lateral gutters. Versa wrap placed over the exposed dura. 15 round OTILIA drain inserted. The incision was then closed with 1 Vicryl in the fascia 2-0 Vicryl subcutaneously and 4 Monocryl for final skin closure. Steri-Strips sterile dressing placed. Patient waken taken the PACU stable condition. Please note spinal cord monitoring was utilized at the procedure no changes noted. Monalisa Pederson was present at the entire procedure and all the patient positioning complex portion of the surgery and final skin closure. I attest to the content of the Intraoperative Record and any orders documented therein. Any exceptions are noted below.
--- NOTE | 2024-05-06 14:33 | Anesthesiology Progress Note ---
Date of Service May 06, 2024 Anesthesia Post Procedure Vital Signs Vital Signs: Temp Pulse Pulse Resp BP Pulse Ox O2 Del Method 05/06/24 14:25 91 H 15 140/76 94 Oxymask 05/06/24 14:15 83 12 137/75 97 Oxymask 05/06/24 14:05 91 H 13 147/83 H 98 Oxymask 05/06/24 13:56 36 C L 85 14 150/86 H 97 Oxymask 05/06/24 08:40 36.8 C 66 20 139/86 97 Room Air O2 Flow Rate 05/06/24 14:25 5 05/06/24 14:15 5 05/06/24 14:05 9 05/06/24 13:56 9 05/06/24 08:40 Transfer of Care Handoff Completed per policy Notes Mental Status: alert / awake / arousable Patient Amnestic to Procedure: Yes Nausea / Vomiting: adequately controlled Pain: adequately controlled Airway Patency, RR, SpO2: stable & adequate BP & HR: stable & adequate Hydration State: stable & adequate Anesthetic Complications: no major complications apparent
[2024-05-06] MEDS ORDERED: HYDROmorphone INJ 0.5 MG/0.5 ML SYR IV PRN (14:58)
[2024-05-06] MEDS ORDERED: traMADol HCL 50 MG TABLET PO PRN (14:58)
[2024-05-06] MEDS ORDERED: LORazepam 2 MG/1 ML VIAL IV PRN (14:58)
[2024-05-06] MEDS ORDERED: FAMOTIDINE 20 MG TAB PO PRN (14:58)
[2024-05-06] MEDS ORDERED: METOCLOPRAMIDE HCL INJ 5 MG/ML 2 ML VIAL IV PRN (14:58)
[2024-05-06] MEDS ORDERED: PROMETHAZINE 12.5 MG/50.5 ML BAG IV PRN (14:58)
[2024-05-06] MEDS ORDERED: HYDROmorphone INJ 1 MG/ML SYRINGE IV PRN (14:58)
[2024-05-06] MEDS ORDERED: ACETAMINOPHEN 1,000 MG/100 ML VIAL IV PRN (14:58)
[2024-05-06] MEDS ORDERED: ALUMINUM/MAGNESIUM SUSP 30 ML UDC PO PRN (14:58)
[2024-05-06] MEDS ORDERED: ONDANSETRON 4 MG OD TAB PO PRN (14:58)
[2024-05-06] MEDS ORDERED: DO NOT ADMINISTER FLU VACCINE PRN (14:58)
[2024-05-06] MEDS ORDERED: bisacodyL 10 MG SUPP PR PRN (14:58)
[2024-05-06] MEDS ORDERED: hydrOXYzine HCl 25 MG TAB PO PRN (14:58)
[2024-05-06] MEDS ORDERED: LORazepam 0.5 MG TAB PO PRN (14:58)
[2024-05-06] MEDS ORDERED: NALOXONE HCL 0.4 MG/1 ML VIAL/CARP IV PRN (14:58)
[2024-05-06] MEDS ORDERED: MAGNESIUM HYDROXIDE SUSP 30 ML UDC PO PRN (14:58)
[2024-05-06] MEDS ORDERED: oxyCODONE HCL IR 5 MG TAB (IMMEDIATE RELEASE) PO PRN (14:58)
[2024-05-06] MEDS ORDERED: DO NOT ADMINISTER PNEUMOCOCCAL VACCINE PRN (14:58)
[2024-05-06] MEDS ORDERED: SOD PHOSPHATE/SOD BIPHOSPHATE ENEMA 132 ML BTL PR PRN (14:58)
--- NOTE | 2024-05-06 15:42 | Fluoroscopy Report ---
FL lumbar spine 2-3V CLINICAL HISTORY: L3-S1 DECOMPRESSION/ FUSION COMPARISON STUDY: None FLUOROSCOPY TIME: 34.5 seconds FLUOROSCOPY IMAGES: 3 EXPOSURE DOSE: 21.40 mGy FINDINGS: Posterior interbody rods and screw fusion hardware is noted at L3-S1 with associated discec angel. Hardware appears intact. No acute fracture or unexpected opaque foreign body identified. IMPRESSION: Fluoroscopic assistance as above. ACT 112: Negative or not required by law. Electronically signed by: Jj Cervantes M.D. 05/06/2024 3:41 PM
[2024-05-06] MEDS: ONDANSETRON INJ 2 MG/ML 2 ML VIAL IV PRN (15:49)
--- NOTE | 2024-05-06 15:50 | Hospitalist Consultation ---
Date of Consultation May 06, 2024 Assessment & Plan (1) Multilevel lumbosacral spondylosis with radiculopathy: (2) S/P spinal surgery: (3) (HFpEF) heart failure with preserved ejection fraction: (4) Cardiac amyloidosis: (5) Asthma: Plan Ambrosio Mendoza is a 74y/o M with PMHx significant for HTN, HLD, asthma, GERD, first-degree AV block, wild-type transthyretin-related (ATTR) amyloidosis, transthyretin cardiac amyloidosis (ATTR-CA), HFpEF, severe concentric LVH and hi story of large pericardial effusion s/p pericardiocentesis in August 2021 who is being seen in medical consultation for routine postoperative medical management after undergoing elective L3-S1 decompression and fusion performed by Dr. Momin on 05/06/24. Multilevel lumbosacral spondylosis with radiculopathy s/p spinal surgery: POD #0 s/p L3-S1 decompression and fusion performed by Dr. Momin on 05/06/24. EBL: 1050mL & Pre-Op Hgb: 15.7 [as of 04/09/24] Per ortho for pain control, wound care, anticoagulation and activities. Continue incentive spirometry, PT/OT when appropriate as per ortho team. Monitor H/H for acute blood loss anemia and transfuse blood products PRN. HFpEF, Cardiac Amyloidosis: Follows with [facility] Cardiology @ [facility]. Cardiac amyloidosis diagnosed in 02/2020. Euvolemic on exam today. BP stable. Continue GDMT Asthma: Saturating well on RA. No respiratory complaints. Continue home inhaler and monitor respiratory status. Other Chronic Medical Conditions: HLD and GERD - Can continue home medications for these specific conditions. DVT Prophylaxis: SCDs/TEDs as per primary service. Code Status: FULL CODE PCP: Lew Hernandez DO [[facility] Primary Care] Disposition: Currently admitted in Med/Surg - discharge planning as per primary service. Thank you for this consultation. We will follow the patient with you during their hospital stay. You can reach a [facility] via [employer]. Patient seen in collaboration with Dr. Awad. Please see addendum. I spent a total of 40 minutes coordinating, documenting, and providing care for this patient excluding time spent in the performance of separately billed services or time spent by another provider/QHP. This included personally reviewing all current laboratories and imaging studies, medical reconciliation, outpatient chart review and discussion with specialists. This chart was completed in part utilizing Speech Voice Recognition Software. Grammatical errors, random word insertions, pronoun errors, and incomplete sentences are an occasional consequence of this system due to software limitations, ambient noise, and hardware issues. Any formal questions or concerns about the content, text, or information contained within the body of this dictation should be directly addressed to the provider for clarification. Supervising Physician Co-Signing Physician Notes Pt was seen and examined at bedside as a medical consult after spine sx 05/06. Pt hemodynamically stable during exam. I have seen and examined the patient and have discussed the case with the provider above. I agree with the assessment and plan as stated. Time spent: 7 min. History of Present Illness Reason for Consultation: Routine Postoperative Medical Management Requesting Physician: Placido Momin DO Attending Physician: Placido Momin DO History of Present Illness Ambrosio Mendoza is a 74y/o M with PMHx significant for HTN, HLD, asthma, GERD, first-degree AV block, wild-type transthyretin-related (ATTR) amyloidosis, transthyretin cardiac amyloidosis (ATTR-CA), HFpEF, severe concentric LVH and history of large pericardial effusion s/p pericardiocentesis in August 2021 who is being seen in medical consultation for routine postoperative medical management after undergoing elective L3-S1 decompression and fusion performed by Dr. Momin on 05/06/24. History obtained from the patient and associated chart review. Endorses good pain control. Tolerating clear liquid diet without issue. Has Stovall catheter in place which is intact and draining clear/yellow urine without difficulty. Denies any chest pain or SOB. Has OTILIA drain x [address] which is intact and draining serosanguineous output without issue. Saturating well on RA. Not yet passing flatus. Offers no major complaints at this time. Allergies Allergy/AdvReac Type Severity Reaction Status Date / Time No Known Allergies Allergy Unknown Verified 05/06/24 08:43 lactose AdvReac Severe Severe Verified 05/06/24 08:43 gas/abnormal pain Home Medications Medication Instructions Recorded Confirmed Type budesonide-formoterol HFA 160 1 inh inhalation BID 03/28/24 05/06/24 History mcg-4.5 mcg/actuation aerosol inhaler furosemide 40 mg tablet 40 mg PO QAM 03/28/24 05/06/24 History garlic 1,000 mg capsule 1,000 mg PO QAM 03/28/24 05/06/24 History omega 6-ozy-jaw-fish oil 1,200 mg 1 cap PO BID 03/28/24 05/06/24 History (144 mg-216 mg) capsule (Fish Oil) omeprazole 40 mg capsule,delayed 40 mg PO Q2D 03/28/24 05/06/24 History release simvastatin 40 mg tablet 40 mg PO HS 03/28/24 05/06/24 History spironolactone 25 mg tablet 25 mg PO QAM 03/28/24 05/06/24 History tafamidis 80 mg PO DAILY 04/09/24 05/06/24 History Patient History Medical History History of heart failure Asthma Patient reports chronic cough/following with pulmonary. Denies asthma/COPD dx Hx asthma listed per cardio records, Follows with Dr. Pleitez/[facility] pulmonary Cardiac amyloidosis Transthyretin cardiac amyloidosis- diflunisal HTN (hypertension) Per cardio records Pericardial effusion Hx 2021 > pericardiocentesis Follows with Dr. Ceballos/[facility] cardio Dyslipidemia GERD (gastroesophageal reflux disease) Surgical History History of surgery Pericardiocentesis r/t pericardial effusion (2021) History of total right knee replacement Right TKA (05/06/16): SAB at L3/4 (1 attempt) + regional at [facility] Hx of nasal septoplasty 2010, w/ turbinate reduction 12/2018 Hx of ankle fusion 2008, left ankle (+ hardware intact) Hx of repair of left rotator cuff 2003, w/lt carpal tunnel release 2005, revision of rotator cuff Hx of repair of right rotator cuff 1982, w/rt carpal tunnel release 02/2011, revision rotator cuff S/P hardware removal right ankle History of open reduction and internal fixation (ORIF) procedure 1970- Right ankle and elbow (screw remains), left upper arm (no hardware used) > hardware removed ankle 2006- right upper leg w/patella and left ankle Hx of colonoscopy Social History Smoking Status: Former smoker Tobacco Type: Cigarettes Smoking End Date: Quit 1973; Second Hand Exposure: Yes (hx); Do You Dip or Chew Tobacco: No; Tobacco Cessation Education Requested by Patient: No Hx Alcohol Use: No Hx Substance Use: No Preferred Language: Czech Communication Ability: Effective [employer] Coordinator Required: No Beliefs That Will Affect Care: None Current Living Situation: Spouse Other Information That Helps Us Care for You: No Feels Safe at Home: Yes Safety Concerns: Feels Safe At This Time Assistive Devices: Glasses and Hearing Aid - Bilateral Review of Systems Review of Systems: At least ten systems reviewed and negative, except as noted in the HPI. Physical Exam Physical Exam: General: WD/WN, NAD, laying down in bed, very pleasant, conversing appropriately. A+Ox3. at bedside. HEENT: Normocephalic, atraumatic. Conjunctivae normal. External ear and nose normal, oropharynx normal. Respiratory: Normal respiratory effort, lungs clear to auscultation, no wheeze/rales/rhonchi. No accessory muscle use. Cardiovascular: Regular rate, rhythm, normal peripheral pulses, no BLE edema. Vessels: No JVD. Abdomen/GI: Normal bowel sounds, soft, nondistended, nontender to palpation in all quadrants. : Stovall catheter intact and draining clear/yellow urine without issue. Extremities/Musculoskeletal: Surgical dressing C/D/I. OTILIA drain x 1 intact and draining serosanguineous output without difficulty. Results & Data Results & Data Vital Signs (Past 12 Hours) Vital Signs Temp Pulse Pulse Resp BP Pulse Ox O2 Del Method 05/06/24 15:47 36.3 C L 92 H 18 143/80 H 92 Room Air 05/06/24 15:20 88 18 158/74 H 95 Room Air 05/06/24 14:35 36.3 C L 86 15 140/79 95 Nasal Cannula 05/06/24 14:25 91 H 15 140/76 94 Oxymask 05/06/24 14:15 83 12 137/75 97 Oxymask 05/06/24 14:05 91 H 13 147/83 H 98 Oxymask 05/06/24 13:56 36 C L 85 14 150/86 H 97 Oxymask 05/06/24 08:40 36.8 C 66 20 139/86 97 Room Air O2 Flow Rate 05/06/24 15:47 05/06/24 15:20 05/06/24 14:35 2 05/06/24 14:25 5 05/06/24 14:15 5 05/06/24 14:05 9 05/06/24 13:56 9 05/06/24 08:40 Diagnostic Findings Lumbar Spine X-Ray 05/06/24 10:05 FL lumbar spine 2-3V CLINICAL HISTORY: L3-S1 DECOMPRESSION/ FUSION COMPARISON STUDY: None FLUOROSCOPY TIME: 34.5 seconds FLUOROSCOPY IMAGES: 3 EXPOSURE DOSE: 21.40 mGy FINDINGS: Posterior interbody rods and screw fusion hardware is noted at L3-S1 with associated discectomy. Hardware appears intact. No acute fracture or unexpected opaque foreign body identified. IMPRESSION: Fluoroscopic assistance as above. ACT 112: Negative or not required by law. Electronically signed by: Jj Cervantes M.D. 05/06/2024 3:41 PM Medications Administered Ondansetron HCl (Ondansetron Inj 2 Mg/Ml 2 Ml Vial) 4 mg IV Q6H PRN PRN Reason: Nausea &/or Vomiting Stop: 06/05/24 14:57 Last Admin: 05/06/24 15:49 Dose: 4 mg Documented By: KER Discontinued Medications Acetaminophen (Acetaminophen 500 Mg Tab) 1,000 mg PO PREOP ISSAC Stop: 05/06/24 18:00 Last Admin: 05/06/24 08:48 Dose: 1,000 mg Documented By: TDM Bupivacaine HCl/Epinephrine Bitart (Bupivacaine/Epinephrine 0.25% 1:200,000 30 Ml Vial) Confirm Administered Dose 30 ml .ROUTE .STK-MED ONE Stop: 05/06/24 10:30 Last Admin: 05/06/24 12:07 Dose: 24 ml Documented By: GMB Cefazolin Sodium (Cefazolin 330 Mg/Ml 1 Gm Vial) Confirm Administered Dose 990 mg .ROUTE .STK-MED ONE Stop: 05/06/24 10:30 Last Admin: 05/06/24 12:08 Dose: 990 mg Documented By: GMB Celecoxib (Celebrex 200 Mg Cap) 200 mg PO PREOP ISSAC Stop: 05/06/24 18:00 Last Admin: 05/06/24 08:49 Dose: 200 mg Documented By: SOFÍA Gabapentin (Gabapentin 300 Mg Cap) 300 mg PO PREOP ISSAC Stop: 05/06/24 18:00 Last Admin: 05/06/24 08:48 Dose: 300 mg Documented By: SOFÍA Lactated Ringer's (Lr) 1,000 mls @ 15 mls/hr IV .Q24H ISSAC Stop: 05/07/24 05:59 Last Infusion: 05/06/24 10:31 Dose: Infused Documented By: Admin: 05/06/24 08:50 Dose: 15 mls/hr Documented By: SOÍFA Lactated Ringer's (Lr) 1,000 mls @ 60 mls/hr IV .[id number] ISSAC Stop: 05/06/24 22:39 Last Admin: 05/06/24 08:49 Dose: Not Given Documented By: SOFÍA Vancomycin HCl 1,250 mg/ (Sodium Chloride) 275 mls @ 200 mls/hr IV PREOP ISSAC Stop: 05/06/24 18:00 Last Infusion: 05/06/24 10:31 Dose: Infused Documented By: Admin: 05/06/24 08:50 Dose: 200 mls/hr Documented By: SOFÍA Miscellaneous ( Floseal Hemostatic Matrix 10ml) 10 ml TOP ONCE ONE Stop: 05/06/24 12:09 Last Admin: 05/06/24 13:30 Dose: 50 ml Documented By: JAVIER (3) (HFpEF) heart failure with preserved ejection fraction Heart failure chronicity: chronic Qualified Code(s): I50.32 - Chronic diastolic (congestive) heart failure (5) Asthma Asthma complication type: unspecified Asthma persistence: unspecified Asthma severity: unspecified severity Qualified Code(s): J45.909 - Unspecified asthma, uncomplicated
[2024-05-06] MEDS: ceFAZolin 2000MG 2,000 MG/15 ML SYR IV SCH (19:58)
[2024-05-06] MEDS: SIMVASTATIN 40 MG TAB PO SCH (19:59)
[2024-05-06] MEDS: DOCUSATE SODIUM/SENNA 50/8.6MG TAB PO SCH (20:02)
[2024-05-06] MEDS: diphenhydrAMINE Capsule 25 MG CAP PO PRN (20:05)
[2024-05-07] MEDS: POLYETHYLENE (MIRALAX) 17 GM PACK PO SCH (05:55)
[2024-05-07] MEDS: PANTOprazole 40 MG TAB PO SCH (07:58)
[2024-05-07] MEDS: FLUTICASONE/VILANTEROL 100/25MCG 14 PUFFS/INHALER INH SCH (08:01)
[2024-05-07] MEDS: dexAMETHasone 6 MG in SYRINGE 0 ML IV SCH (08:10)
[2024-05-07] MEDS: TAFAMIDIS MEGLUMINE 20 MG PO SCH (08:20)
[2024-05-07] MEDS: ACETAMINOPHEN 500 MG TAB PO PRN (08:22)
[2024-05-07 08:30] LABS: Basophils # (auto) 0.02 K/uL (0.00-0.20); Basophils % (auto) 0.1 %; Hematocrit (blood only) 31.9 % (42.0-52.0); Hemoglobin 10.7 g/dl (14.0-18.0); Immature Granulocytes # (auto) 0.11 K/uL (0.01-0.20); Immature Granulocytes % (auto) 0.6 %; Lymphocytes # (auto) 1.18 K/uL (1.20-3.40); Lymphocytes % (auto) 6.7 %; Mean Corpuscular Hgb Conc 33.5 g/dL (32.0-36.0); Mean Corpuscular Volume 89.4 fL (80.0-100.0); Mean Platelet Volume 10.2 fL (9.4-12.4); Monocytes # (auto) 1.61 K/uL (0.11-0.59); Monocytes % (auto) 9.2 %; Neutrophils % (auto) 83.4 %; Platelet Count 212 K/uL (130-400); RDW Coefficient of Variation 13.2 % (11.5-14.5); Red Blood Count 3.57 M/uL (4.70-6.10); White Blood Count 17.52 K/ul (4.8-10.8)
[2024-05-07 08:44] LABS: BUN Creatinine Ratio 21.3 (10-20); Calcium 8.2 mg/dl (8.6-10.3); Creatinine Clr Calc Pharmacy 72.8 ml/min; Magnesium 1.9 mg/dl (1.7-2.4); Phosphorus 3.3 mg/dl (2.5-4.9); Potassium 4.2 mmol/L (3.5-5.1)
--- NOTE | 2024-05-07 11:46 | Orthopedic Progress Note ---
Date of Service May 07, 2024 Assessment & Plan (1) Multilevel lumbosacral spondylosis with radiculopathy: Plan: At this time we will continue physical therapy monitor his OTILIA operatively discharge home in the next few days. Admission and Anticipated Discharge Date Admission Date: May 06, 2024 Subjective Patient's back pain is controlled leg symptoms markedly improved. Physical Exam Physical Exam: Patient is currently in bed. Is comfortable. Constricted testing. Results & Data Vital Signs (Past 12 Hours) Vital Signs Temp Pulse Resp BP Pulse Ox O2 Del Method 05/07/24 11:28 36.7 C 70 16 109/53 L 97 Room Air 05/07/24 07:39 36.5 C 79 18 119/64 96 Room Air 05/07/24 03:21 36.8 C 82 16 113/62 94 Room Air
--- NOTE | 2024-05-07 16:39 | Hospitalist Progress Note ---
Date of Service May 07, 2024 Assessment & Plan (1) Multilevel lumbosacral spondylosis with radiculopathy: (2) S/P spinal surgery: (3) (HFpEF) heart failure with preserved ejection fraction: (4) Cardiac amyloidosis: (5) Asthma: Plan Per previous hospitalist notes with addendum: Ambrosio Mendoza is a 74y/o M with PMHx significant for HTN, HLD, asthma, GERD, first-degree AV block, wild-type transthyretin-related (ATTR) amyloidosis, transthyretin cardiac amyloidosis (ATTR-CA), HFpEF, severe concentric LVH and history of large pericardial effusion s/p pericardiocentesis in August 2021 who is being seen in medical consultation for routine postoperative medical management after undergoing elective L3-S1 decompression and fusion performed by Dr. Momin on 05/06/24. Multilevel lumbosacral spondylosis with radiculopathy s/p spinal surgery: POD #0 s/p L3-S1 decompression and fusion performed by Dr. Momin on 05/06/24. EBL: 1050mL & Pre-Op Hgb: 15.7 [as of 04/09/24] Per ortho for pain control, wound care, anticoagulation and activities. Continue incentive spirometry, PT/OT when appropriate as per ortho team. Monitor H/H for acute blood loss anemia and transfuse blood products PRN. 05/07 Blood pressure on the lower end Hold off on diuretics Monitor blood pressure closely HFpEF, Cardiac Amyloidosis: Follows with [facility] Cardiology @ [facility]. Cardiac amyloidosis diagnosed in 02/2020. Euvolemic on exam today. BP stable. Continue GDMT Asthma: Saturating well on RA. No respiratory complaints. Continue home inhaler and monitor respiratory status. Other Chronic Medical Conditions: HLD and GERD - Can continue home medications for these specific conditions. DVT Prophylaxis: SCDs/TEDs as per primary service. Admission and Anticipated Discharge Date Admission Date: May 06, 2024 Subjective Follow-up for status post back surgery, etc. Seen resting in bed, sitting up, comfortable, good spirits States he feels fine overall Minimal back pain Already ambulating in the hallways with no problems Denies dizziness, lightheadedness, chest pain, shortness of breath, nausea No other new symptoms Review of Systems Review of Systems: all noted and negative except for above Physical Exam Physical Exam: General- oriented x 3, not in distress, speaks in sentences with no effort or accessory muscle use Eyes- anicteric Neck- no JVD Lungs- clear breath sounds bilaterally, no rales/wheezes Heart- normal rate, regular rhythm; no murmurs Abdomen- normal bowel sounds, nondistended, soft, nontender Extremities- no pretibial edema, no calf tenderness Back-OTILIA drain: Serosanguineous output noted Neuro- alert, oriented x 3; no gross focal neurologic deficits Skin- warm & dry Results & Data Results & Data Vital Signs (Past 12 Hours) Vital Signs Temp Pulse Resp BP BP Pulse Ox O2 Del Method 05/07/24 14:27 36.6 C 82 18 112/66 93 Room Air 05/07/24 11:28 36.7 C 70 16 109/53 L 97 Room Air 05/07/24 07:39 36.5 C 79 18 119/64 96 Room Air all noted and reviewed including below (3) (HFpEF) heart failure with preserved ejection fraction Heart failure chronicity: chronic Qualified Code(s): I50.32 - Chronic diastolic (congestive) heart failure (5) Asthma Asthma severity: unspecified severity Asthma persistence: unspecified Asthma complication type: unspecified Qualified Code(s): J45.909 - Unspecified asthma, uncomplicated
[2024-05-07] MEDS ORDERED: PANTOprazole 40 MG TAB PO SCH (21:00)
[2024-05-08 09:35] LABS: Hematocrit (blood only) 32.5 % (42.0-52.0); Hemoglobin 10.7 g/dl (14.0-18.0); Mean Corpuscular Volume 89.3 fL (80.0-100.0); Red Blood Count 3.64 M/uL (4.70-6.10); White Blood Count 16.49 K/ul (4.8-10.8)
[2024-05-08 09:36] LABS: Basophils # (auto) 0.02 K/uL (0.00-0.20); Basophils % (auto) 0.1 %; Eosinophils # (auto) 0.01 K/uL (0.00-0.50); Eosinophils % (auto) 0.1 %; Immature Granulocytes # (auto) 0.13 K/uL (0.01-0.20); Immature Granulocytes % (auto) 0.8 %; Lymphocytes # (auto) 0.88 K/uL (1.20-3.40); Lymphocytes % (auto) 5.3 %; Mean Corpuscular Hemoglobin 29.4 pg (25.0-34.0); Mean Corpuscular Hgb Conc 32.9 g/dL (32.0-36.0); Monocytes # (auto) 1.34 K/uL (0.11-0.59); Monocytes % (auto) 8.1 %; Neutrophils # (auto) 14.11 K/uL (1.40-6.50); Neutrophils % (auto) 85.6 %; Platelet Count 201 K/uL (130-400); RDW Coefficient of Variation 13.5 % (11.5-14.5); RDW Standard Deviation 44.4 fL (36.4-46.3)
[2024-05-08 09:51] LABS: BUN Creatinine Ratio 24.1 (10-20); Calcium 8.6 mg/dl (8.6-10.3); Creatinine Clr Calc Pharmacy 74.5 ml/min; Potassium 3.9 mmol/L (3.5-5.1)
--- NOTE | 2024-05-08 12:16 | Orthopedic Progress Note ---
Date of Service May 08, 2024 Assessment & Plan (1) Multilevel lumbosacral spondylosis with radiculopathy: Plan: At this time we will continue physical therapy monitor his OTILIA output anticipate discharge home tomorrow. Admission and Anticipated Discharge Date Admission Date: May 06, 2024 Subjective Back pain controlled leg pain improved. He is tolerating physical therapy. Physical Exam Physical Exam: Patient is in bed at this time. He is comfortable. Good strength testing. Results & Data Vital Signs (Past 12 Hours) Vital Signs Temp Pulse Resp BP Pulse Ox O2 Del Method 05/08/24 07:17 36.4 C L 69 16 121/71 95 Room Air Queries Orthopedic Spine Acute Posthemorrhagic Anemia: Yes
--- NOTE | 2024-05-08 13:23 | Hospitalist Progress Note ---
Date of Service May 08, 2024 Assessment & Plan (1) Multilevel lumbosacral spondylosis with radiculopathy: (2) S/P spinal surgery: (3) (HFpEF) heart failure with preserved ejection fraction: (4) Cardiac amyloidosis: (5) Asthma: Plan Per previous hospitalist notes with addendum: Ambrosio Mendoza is a 74y/o M with PMHx significant for HTN, HLD, asthma, GERD, first-degree AV block, wild-type transthyretin-related (ATTR) amyloidosis, transthyretin cardiac amyloidosis (ATTR-CA), HFpEF, severe concentric LVH and history of large pericardial effusion s/p pericardiocentesis in August 2021 who is being seen in medical consultation for routine postoperative medical management after undergoing elective L3-S1 decompression and fusion performed by Dr. Momin on 05/06/24. Multilevel lumbosacral spondylosis with radiculopathy s/p spinal surgery: POD #0 s/p L3-S1 decompression and fusion performed by Dr. Momin on 05/06/24. EBL: 1050mL & Pre-Op Hgb: 15.7 [as of 04/09/24] Per ortho for pain control, wound care, anticoagulation and activities. Continue incentive spirometry, PT/OT when appropriate as per ortho team. Monitor H/H for acute blood loss anemia and transfuse blood products PRN. 05/08 Blood pressure improving, resume usual diuretics today including Lasix and spironolactone Monitor blood pressure Acute blood loss anemia Hemoglobin down trended, today 10.7 Asymptomatic Repeat CBC tomorrow HFpEF, Cardiac Amyloidosis: Follows with [facility] Cardiology @ [facility] Card[facility]oidosis [facility]. Cardiac amyloidosis diagnosed in 02/2020. Euvolemic on exam today. BP stable. Continue GDMT Asthma: Saturating well on RA. No respiratory complaints. Continue home inhaler and monitor respiratory status. Other Chronic Medical Conditions: HLD and GERD - Can continue home medications for these specific conditions. DVT Prophylaxis: SCDs/TEDs as per primary service. Admission and Anticipated Discharge Date Admission Date: May 06, 2024 Subjective Follow-up for status post back surgery, etc. Seen resting in bed, sitting up, comfortable, not in distress Feels fine overall No shortness of breath, chest pain, palpitations, dizziness Minimal back pain Ambulating with no problems Review of Systems Review of Systems: all noted and negative except for above Physical Exam Physical Exam: General- oriented x 3, not in distress, speaks in sentences with no effort or accessory muscle use Eyes- anicteric Neck- no JVD Lungs- clear breath sounds bilaterally, no rales/wheezes Heart- normal rate, regular rhythm; no murmurs Abdomen- normal bowel sounds, nondistended, soft, nontender Extremities- no pretibial edema, no calf tenderness Back: OTILIA drain in place, serosanguineous output noted Neuro- alert, oriented x 3; no gross focal neurologic deficits Skin- warm & dry Results & Data Results & Data Vital Signs (Past 12 Hours) Vital Signs Temp Pulse Resp BP Pulse Ox O2 Del Method 05/08/24 07:17 36.4 C L 69 16 121/71 95 Room Air all noted and reviewed including below (3) (HFpEF) heart failure with preserved ejection fraction Heart failure chronicity: chronic Qualified Code(s): I50.32 - Chronic diastolic (congestive) heart failure (5) Asthma Asthma severity: unspecified severity Asthma persistence: unspecified Asthma complication type: unspecified Qualified Code(s): J45.909 - Unspecified asthma, uncomplicated
[2024-05-09 08:05] LABS: Basophils # (auto) 0.01 K/uL (0.00-0.20); Basophils % (auto) 0.1 %; Eosinophils # (auto) 0.01 K/uL (0.00-0.50); Eosinophils % (auto) 0.1 %; Hematocrit (blood only) 29.5 % (42.0-52.0); Hemoglobin 9.9 g/dl (14.0-18.0); Immature Granulocytes # (auto) 0.11 K/uL (0.01-0.20); Immature Granulocytes % (auto) 0.8 %; Lymphocytes # (auto) 1.57 K/uL (1.20-3.40); Mean Corpuscular Hemoglobin 30.1 pg (25.0-34.0); Mean Corpuscular Hgb Conc 33.6 g/dL (32.0-36.0); Mean Corpuscular Volume 89.7 fL (80.0-100.0); Mean Platelet Volume 10.4 fL (9.4-12.4); Monocytes # (auto) 1.44 K/uL (0.11-0.59); Neutrophils # (auto) 9.99 K/uL (1.40-6.50); Platelet Count 193 K/uL (130-400); RDW Coefficient of Variation 13.2 % (11.5-14.5); RDW Standard Deviation 43.8 fL (36.4-46.3); Red Blood Count 3.29 M/uL (4.70-6.10); White Blood Count 13.13 K/ul (4.8-10.8)
[2024-05-09 08:21] VITALS: RESP 16
--- NOTE | 2024-05-09 12:03 | Discharge Summary ---
Date of Service May 09, 2024 Admission HPI Per Admitting Provider This is a 73-year-old male who presents for chronic persistent back and leg pain after failing course of nonoperative care is here for surgical intervention. Principal Diagnosis Multilevel lumbar spondylosis with radiculopathy Discharge Data Allergies Allergy/AdvReac Type Severity Reaction Status Date / Time No Known Allergies Allergy Unknown Verified 05/06/24 08:43 lactose AdvReac Severe Severe Verified 05/06/24 08:43 gas/abnormal pain Consultations 05/06/24 14:58 Consult Hospitalist Routine Procedures Performed Operation Date: 05/06/24 10:05 Actual Procedures p L3-S1 Decompression and Fusion, Spinal Cord Monitoring(Not Applicable) - Placido Momin DO Ordered Studies 05/06/24 10:05 FL lumbar spine 2-3V Routine Hospital Course (1) Multilevel lumbosacral spondylosis with radiculopathy: Patient underwent multilevel lumbar decompression fusion tolerated as well as taken to orthopedic for postoperative. Postop he progressed appropriately. Marked improvement of his leg pain. Excellent strength testing. OTILIA drain decreasing. Pain well-controlled. Subsidy discharged home. Discharge orders and instructions from the chart for further review. Total Time Total Time Spent Total Time Spent (In Minutes): 20 minutes Discharge Plan Discharge Items Patient Disposition: Home - Self-Care Reason For Visit: Two-Level Lumbosacral Spondylosis with Radiculopat Discharge Diagnosis: Lumbar spondylosis with radiculopathy Activity: As commented below Non-emergency contact: Primary Care Provider Call non-emergency contact if: you have any medication questions Follow-up/Referrals: Lew Hernandez [Primary Care Provider] - Diet: Regular Addtl Attending Provider Instructions: ACTIVITY RECOMMENDATIONS: SELF CARE INSTRUCTIONS AFTER THORACIC/LUMBAR FUSIONS 1. You may walk to your tolerance. It is good exercise for your legs and back. Expect some back and intermittent leg aches and pains. 2. You may perform "counter-top" level activities (make a sandwich, rebecca with a project, etc.). 3. No bending or lifting of more than 10 pounds or back twisting of any nature (roll like a log when turning in bed). 4. You may ride in a car for 20-30 minutes at a time. No driving until after your first visit with your doctor. 5. Frequent changes of position and restricting sitting to 30 minutes at a time will help limit the amount of back spasms and stiffness you may experience. 6. You may discontinue the use of ambulatory aids (cane, crutches, etc.) once your strength and confidence allow. 7. 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 Do not take a tub bath, sit in a hot tub or go into a swimming pool until after your first recheck in the office. 8. You may resume previous diet. SPECIAL CARE INSTRUCTIONS: VERY IMPORTANT TO READ AND REVIEW A. Your surgical incision has been closed with a cosmetic suture under the skin that will dissolve in about 6 weeks. In 14 days, you can use a pair of clean scissors and cut the suture that is left outside of the skin at the ends of your incision. 1. The small skin tapes can be removed 7 days after surgery if they have not fallen off by that point. 2. You may keep the wound open to air as much as possible to promote healing after post-op day number 5 unless told otherwise by your doctor. 3. If you think the wound looks like it is becoming infected (redness or worsening drainage) and/or you are experiencing fever, chill or worsening back pain and muscle spasms, contact the office so that we may evaluate you as soon as possible. B. Complications are uncommon, but please contact us if you have any signs or symptoms of: 1. wound infection (fever higher than 102.5 degrees F, redness, separation of wound, drainage, or increasing pain from the incision) 2. blood clots in legs (pain, swelling, redness and warmth in legs) 3. urinary tract infection (fever higher than 102.5 degrees F, burning upon urination or increased frequency of urination) 4. nerve problems (inability to walk on your toes or heels, numbness, loss of bowel or bladder control) 5. any other symptoms that concern you C. Please call the office at if you have any concerns or questions about your operation or recovery. D. No smoking! Smoking drastically decreases the chance of a solid fusion. E. Do not take any anti-inflammatory medications (Indocin, Advil, Motrin, Aspirin, Naprosyn, etc.) as these may inhibit the chance of a solid fusion. Tylenol is okay to take for pain. MANAGING PAIN AFTER SPINAL SURGERY 1. Narcotic medication is intended for short-term use and will be provided for surgical pain. Surgical pain usually lasts for a period of 4-6 weeks. Narcotic medication includes Percocet, Vicodin, Darvocet, Tylenol #3 or Lortab. 2. Longer-term pain is more appropriately treated with non-narcotic medication such as Tylenol ES. 3. Muscle spasm is not appropriately treated with narcotics. Muscle relaxers such as Soma, Flexeril or Skelaxin can be used along with Tylenol ES. 4. Remember that we all live with some "aches and pains". This is not unusual or uncommon after an injury or as we get older. a. Back pain is expected and may include muscle spasms for 4 to 6 weeks after surgery. The pain should gradually improve. If the pain worsens for no apparent reason, please contact the office. b. Intermittent leg pain may also be experienced and should not be concerned about unless it worsens for no apparent reason. If so, please contact the office. 5. We will provide appropriate medication within the normal guidelines of their prescribed use. We will also be very cautious and aware of potential abuse and extended duration of patients' medication needs. a. Pain medications are for your comfort and to assist with sleep and rest so that the tissue can heal. They are not provided in order to return to normal activity and should not be used through the day. To do so or worsening pain at night can result from ongoing tissue damage and deve lopment of tolerance to the prescribed medicine. 6. Please allow 2-3 days to process refills. Prescriptions will not be mailed but must be picked up at the office. FOLLOW UP VISIT: Keep your scheduled follow-up appointment. Any questions, please call the office at . Pending Studies at Discharge: No Stand-Alone Forms: My [employer], Smoking Cessation Medications and DC Order Prescriptions: New tramadol 50 mg tablet 50 mg PO Q6H PRN (Reason: pain, moderate) Qty: 30 0RF oxycodone 5 mg tablet 5 mg PO Q6H PRN (Reason: pain) Qty: 30 0RF Continued furosemide 40 mg Tablet 40 mg PO QAM omeprazole 40 mg Capsule,Delayed Release(Dr/Ec) 40 mg PO Q2D spironolactone 25 mg Tablet 25 mg PO QAM simvastatin 40 mg Tablet 40 mg PO HS garlic 1,000 mg Capsule 1,000 mg PO QAM budesonide-formoterol 160-4.5 mcg/actuation Hfa Aerosol Inhaler 1 inh INHALATION BID omega 7-uco-cho-fish oil [Fish Oil] 1,200 (144-216) mg Capsule 1 cap PO BID tafamidis 80 mg PO DAILY Discharge Orders: Discharge Order (Routine); Ordered 05/09/24 Ordered By: Placido Momin Admission Data Admit Date/Time: 05/06/24 13:55 Attending Provider: Placido Momin Admit Provider: Placido Momin Primary Care Provider: Lew Hernandez Other Providers: Jennifer Carolina
[2024-05-09 12:09] VITALS: PULSE 72; TEMP 98.1; O2SAT 95
[2024-05-09] MEDS: SPIRONOLACTONE 25 MG TAB PO SCH (12:13)
[2024-05-09] MEDS: FUROSEMIDE 40 MG TAB PO SCH (12:13)
[2024-05-09 12:20] VITALS: BP 121/71
--- NOTE | 2024-05-09 14:48 | Hospitalist Progress Note ---
Date of Service May 09, 2024 Assessment & Plan (1) Multilevel lumbosacral spondylosis with radiculopathy: (2) S/P spinal surgery: (3) (HFpEF) heart failure with preserved ejection fraction: (4) Cardiac amyloidosis: (5) Asthma: Plan Ambrosio Mendoza is a 74y/o M with PMHx significant for HTN, HLD, asthma, GERD, first-degree AV block, wild-type transthyretin-related (ATTR) amyloidosis, transthyretin cardiac amyloidosis (ATTR-CA), HFpEF, severe concentric LVH and history of large pericardial effusion s/p pericardiocentesis in August 2021 who is being seen in medical consultation for routine postoperative medical management after undergoing elective L3-S1 decompression and fusion performed by Dr. Momin on 05/06/24. Multilevel lumbosacral spondylosis with radiculopathy s/p spinal surgery: s/p L3-S1 decompression and fusion performed by Dr. Momin on 05/06/24. EBL: 1050mL & Pre-Op Hgb: 15.7 [as of 04/09/24] Per ortho for pain control, wound care, anticoagulation and activities. Continue incentive spirometry, PT/OT Acute blood loss anemia Hemoglobin down trended in subsequent labwork asymptomatic repeat CBC shows stable hb HFpEF, Cardiac Amyloidosis: Follows with [facility] @ [facility]. Cardiac amyloidosis diagnosed in 02/2020. Euvolemic on exam today. BP stable. Continue GDMT Asthma: Saturating well on RA. No respiratory complaints. Continue home inhaler and monitor respiratory status. Other Chronic Medical Conditions: HLD and GERD - Can continue home medications for these specific conditions. Admission and Anticipated Discharge Date Admission Date: May 06, 2024 Subjective Patient seen and examined at bedside. Comfortable; not in distress. Denies fever, chills, chest pain, shortness of breath, abdominal pain or urinary symptoms. No significant overnight events Review of Systems Review of Systems: All systems reviewed & are unremarkable except as noted in Subjective Physical Exam Physical Exam: General- oriented x 3, not in distress, speaks in sentences with no effort or accessory muscle use Eyes- anicteric Neck- no JVD Lungs- clear breath sounds bilaterally, no rales/wheezes Heart- normal rate, regular rhythm; no murmurs Abdomen- normal bowel sounds, nondistended, soft, nontender Extremities- no pretibial edema, no calf tenderness Neuro- alert, oriented x 3; no gross focal neurologic deficits Skin- warm & dry Results & Data Results & Data Vital Signs (Past 12 Hours) Vital Signs Temp Pulse Resp BP BP Pulse Ox O2 Del Method 05/09/24 12:18 36.7 C 72 16 117/64 121/71 95 05/09/24 12:09 36.7 C 72 16 117/64 95 Room Air 05/09/24 08:19 36.3 C L 69 16 124/77 96 Room Air (3) (HFpEF) heart failure with preserved ejection fraction Heart failure chronicity: chronic Qualified Code(s): I50.32 - Chronic diastolic (congestive) heart failure (5) Asthma Asthma severity: unspecified severity Asthma persistence: unspecified Asthma complication type: unspecified Qualified Code(s): J45.909 - Unspecified asthma, uncomplicated
== END 2024-05-09 12:59 | disposition home or self-care (01) | DRG 427 ==
LOC: ASU 07:59 → 3N 13:55